=== PATIENT | female | born 1985 | race Caucasian/White ===

== ENCOUNTER 2017-01-27 16:47 | Outpatient (CLI) | payer OTHER ==
[~2017-01-27 16:47] MED LIST: ALBUTEROL HFA60 DOSE IN; FLONASE0.05 %; IBUPROFEN400 MG PO; VISTARIL25 MG PO; ZANTAC 150 MAX150 MG PO
--- NOTE | 2017-01-27 17:47 | DIAGNOSTIC IMAGING REPORT ---
PROCEDURE: US COMPLETE PELVIC W/TRANSVAG INDICATION: PELVIC PAIN TECHNIQUE: Transabdominal and endovaginal [place] scale and color Doppler sonographic images of the female pelvis were obtained. COMPARISON: MRI 01/09/2017 FINDINGS: TRANSABDOMINAL SCANS: Anteverted uterus measures 10.2 cm in length. Normal contour and echotexture. Normal adnexa without suspicious mass. The visible portion of the urinary bladder is normal. No significant free pelvic fluid. TRANSVAGINAL SCANS: The uterus is anteverted in position and has a fairly homogeneous echotexture. The uterus measures 6.7 x 5.4 x 4.6 cm. The endometrium is 10 mm in thickness. Mildly heterogeneous appearance with a trace amount of endometrial fluid near the fundus. No significant lower uterine segment endometrial fluid collection. Closed cervix. The right ovary measures 3.6 x 2.7 x 2.3 cm and contains multiple follicles including at least to hemorrhagic follicles, one of which is peripherally hypervascular, likely a corpus luteum. There is normal arterial flow present. The left ovary measures 2.1 x 1.6 x 2.5 cm and also has a normal follicular echotexture and normal vascularity. No suspicious adnexal masses or free pelvic fluid. IMPRESSION: 1. Two hemorrhagic follicles on the right ovary. 2. Normal left ovary and left adnexa. 3. Expected, mildly heterogeneous appearance of the endometrium status post elective . 4. Discussed with Tg Combs in the Urgent Care clinic.
--- NOTE | 2017-01-27 18:42 | DIAGNOSTIC IMAGING REPORT ---
PROCEDURE: ABDOMEN/PELVIS WITH CONTRAST CLINICAL INDICATION: LOW PELVIC PAIN TECHNIQUE: 145 ml of Isovue 300 were injected intravenously and axial images were obtained of the abdomen and pelvis with sagittal and coronal reformations. COMPARISON: Pelvic ultrasound 01/27/2017 and MR 01/09/2017 FINDINGS: ABDOMEN: Elongated right lobe of the liver. Surgically absent gallbladder. Clear lung bases. Normal sized heart. No hiatal hernia. The adrenal glands, kidneys, pancreas and spleen are normal. The abdominal aorta is normal in its course and caliber. No atherosclerosis. There are no suspicious calcifications, retroperitoneal adenopathy or masses. The stomach, upper bowel loops, and mesentery are normal. No free fluid or inflammation. PELVIS: The appendix and pelvic small bowel loops are normal. Normal amount of stool in the colon and rectum. The uterus, ovaries, urinary bladder, and pelvic vessels are normal. No adenopathy, free fluid, or pelvic mass. Intact osseous structures. IMPRESSION: 1. No acute process. 2. Post cholecystectomy. 3. Elongated right liver lobe, normal variant. 4. Findings discussed with Tg Combs in the emergency Urgent Care clinic. All CT scans at this facility use dose modulation, iterative reconstruction, and/or weight-based dosing when appropriate to reduce radiation dose to as low as reasonably achievable.
== END 2017-01-27 23:00 ==
LOC: US SRH 16:47
DX: R10.9 Unspecified abdominal pain (principal); R10.2 Pelvic and perineal pain; Z90.49 Acquired absence of other specified parts of digestive tract